=== PATIENT | male | born 1975 | race Caucasian/White ===

== ENCOUNTER 2023-01-04 04:49 | Emergency (ER) | payer MEDICAID ==
[~2023-01-04] VITALS: Ht 175.3 cm; Wt 98.0 kg
[2023-01-04 04:53] VITALS: BP 139/80; PULSE 71; RESP 18; TEMP 98.5; O2SAT 98
[2023-01-04 05:38] LABS: BASOPHILS % 0.4 % (0.0-2.0); EOSINOPHILS % 1.6 % (0.0-5.0); HEMATOCRIT. 46.1 % (42.0-52.0); HEMOGLOBIN. 15.8 g/dL (14.0-18.0); LYMPHOCYTES % 26.2 % (20.0-50.0); MEAN CORPUSCULAR HEMOGLOBIN 30.7 pg (28.0-32.0); MEAN CORPUSCULAR VOLUME 89.6 fL (80.0-94.0); MEAN PLATELET VOLUME 8.4 fl (7.4-10.4); MONOCYTES % 8.8 % (2.0-8.0); PLATELET 236 x1000/uL (130-400); RED BLOOD CELL COUNT 5.14 mill/uL (4.7-6.1); RED CELL DISTRIBUTION WIDTH 13.8 % (11.6-14.6)
[2023-01-04 05:49] LABS: CHLORIDE 104 mEq/L (98-107)
[2023-01-04 07:13] LABS: CLARITY URINE CLEAR (CLEAR); COLOR URINE YELLOW (YELLOW); KETONES URINE NEGATIVE (NEGATIVE); LEUKOCYTE ESTERASE URINE NEGATIVE (NEGATIVE); NITRITE URINE NEGATIVE (NEGATIVE); OCCULT BLOOD URINE NEGATIVE (NEGATIVE); PROTEIN URINE NEGATIVE (NEGATIVE); SPECIFIC GRAVITY URINE 1.019 (1.005-1.030); UROBILINOGEN URINE 0.2 E.U./dL (0.2-1.0)
[2023-01-04] MEDS ORDERED: AMOX1TAB16 MT (07:22)
[2023-01-04] MEDS ORDERED: [UNRECOGNIZED DRUG - CODE] MT (07:22)
== END 2023-01-04 07:59 | disposition home or self-care (01) ==
LOC: ER 05:16
DX: R42 Dizziness and giddiness (principal); J32.3 Chronic sphenoidal sinusitis; I10 Essential (primary) hypertension
CPT/HCPCS: 36415; 71045; 80053; 81003; 84484; 85025; 93005; 99285